=== PATIENT | female | born 1940 | race Caucasian/White ===

== ENCOUNTER 2017-02-05 18:45 | Emergency (ER) | payer OTHER ==
[2017-02-05 20:50] VITALS: BP 103/72
== END 2017-02-05 20:50 | disposition home or self-care (01) ==
LOC: ED 18:45
DX: T18.128A Food in esophagus causing other injury, initial encounter (principal); R13.10 Dysphagia, unspecified; J44.9 Chronic obstructive pulmonary disease, unspecified; X58.XXXA Exposure to other specified factors, initial encounter; Y93.89 Activity, other specified; Y92.89 Other specified places as the place of occurrence of the external cause; Y99.8 Other external cause status
CPT/HCPCS: J1610; J2060; J2405